=== PATIENT | male | born 1965 | race Caucasian/White ===

== ENCOUNTER 2023-10-01 01:12 | Inpatient (IN) | payer OTHER, SELFPAY ==
[2023-09-30 22:03] VITALS: BP 157/97
[2023-09-30 22:16] VITALS: BMI 30.2
[2023-09-30 22:24] VITALS: BP 153/89
[2023-09-30 22:31] LABS: % Basophils 0.7 % (0-2); % Eosinophils 1.5 % (0-6); % Immature Granulocytes 0.3 % (0-0.5); % Lymphocytes 33.1 % (20.5-51.1); % Neutrophils 54.4 % (42.2-75.2); Absolute Eosinophils 0.1 10^3/uL (0-0.7); Absolute Monocytes 0.6 10^3/uL (0.1-0.6); Absolute Neutrophils 3.2 10^3/uL (1.4-6.5); Hematocrit 39.7 % (39.0-52.0); Hemoglobin 14.1 g/dL (13.0-18.0); Mean Corp Hgb Conc. 35.5 g/dL (33.0-37.0); Mean Corpuscular Hgb 32.1 pg (27.0-31.0); Mean Corpuscular Volume 90.4 fL (80.0-94.0); Mean Platelet Volume 9.1 fL (7.4-10.4); Nucleated Red Blood Cells % 0 % (-); Platelet Count 170 10^3/uL (130-400); Red Blood Cell Count 4.39 10^6/uL (4.70-6.10); White Blood Cell Count 5.9 10^3/uL (4.8-10.8)
[2023-09-30] MEDS: LOW STRENGTH ASPIRIN 324 MG PO (22:37)
[2023-09-30] MEDS: NITROSTAT (SUBLINGUAL) 0.400000000000000022 MG SL (22:37)
[2023-09-30 22:48] LABS: ALT (SGPT) < 10 U/L (0-50); AST (SGOT) 23 U/L (17-59); Albumin 4.6 g/dl (3.5-5.0); Alkaline Phosphatase 75 U/L (38-126); Blood Urea Nitrogen 16 mg/dl (9-20); Calcium 9.5 mg/dl (8.4-10.2); Carbon Dioxide 29 mmol/L (22-30); Chloride 98 mmol/L (98-107); Estimated Creatinine Clearance 84 ml/min; Glucose 132 mg/dl (70-99); Potassium 3.5 mmol/L (3.5-5.1); Sodium 138 mmol/L (135-145); Total Bilirubin 0.6 mg/dl (0.2-1.3); Total Protein 7.4 g/dl (6.3-8.2); eGFR > 60.00
[2023-09-30 22:59] LABS: Troponin I < 0.012 ng/ml
[2023-09-30 23:00] VITALS: BP 119/94
--- NOTE | 2023-09-30 23:42 | ED.GENMED ---
History of Present Illness
General
Chief Complaint: Chest Pain
Source: patient
Exam Limitations: none
Time Seen by Provider: 09/30/23 22:32
Nursing documentation reviewed up to this point in time: agreed with
Travel History
Have you had any contact with someone who has COVID-19?: No
Do you have any symptoms of coronavirus? Fever > 100 degrees, chills, cough, shortness of breath, sore throat, loss of taste or smell, muscle aches, or headache?: No
History of Present Illness
History of Present Illness:
58-year-old male with a past medical history of asthma, hypertension, CAD status post CABG, VT status post AICD, GERD and Martínez's esophagus who presents to the emergency room for evaluation of chest pain. Patient reports onset of symptoms about
30 minutes prior to arrival and have been constant since that time. He reports 8/10 intensity described as an intense pressure in the center of his chest. Associate with mild shortness of breath. No nausea, vomit, diaphoresis. He says onset of
symptoms began while he was driving home from work. He denies any recent illness. He denies any recent leg pain or swelling. He follows with [facility] cardiology (Dr. Granados); he has a known history of CT status post stent 20 years ago and had a CABG
5 years later. He says that he has a known 'blockage' that they have been following and managing medically.
Past History
Past History
ED Past Medical History: CAD, GERD (barretts), HTN, Hypercholesterolemia, CT (2000), Other (cardiomyopathy) and Other (Diverticulitis, volvulus, Kidney stones)
ED Past Surgical History: Cardiac (CABG with 3 vessel bypass, 2008, AICD), Orthopedic and Other (Gastropexy November 2011 for repair of gastric volvulus. Anterior gastropexy and gastrostomy September 2012)
Social History
Tobacco: Non-smoker
Alcohol: None
Drug: None
Personal:
Living: with family
Employment: Employed
Family History
Family History: CAD
Review of Systems
Review of Systems
All Other Systems: ROS reviewed and negative except as documented in HPI and ROS
Constitutional: Denies fever or chills
EENT: Denies sore throat or runny nose
Respiratory: Reports trouble breathing; Denies cough
Cardiac: Reports chest pain; Denies diaphoresis, palpitations or syncope
ABD/GI: Denies abdominal pain, nausea, vomiting or diarrhea
: Denies flank pain
Musculoskeletal: Denies neck pain or back pain
Neurological: Denies dizzy, headache, weakness or numbness
Phy Exam
Physical Exam
Physical Exam:
General: Awake, alert, oriented x3; appears uncomfortable clutching his chest
Head: Normocephalic, atraumatic
Eyes: Conjunctiva normal, sclera anicteric
Throat: Airway intact, handling secretions
Neck: Trachea midline, supple without meningismus
Lungs: Clear to auscultation bilaterally, no wheezing, rales, rhonchi
Heart: Regular rate and rhythm, no murmurs, gallops, or rubs
Abd: Soft, non distended, nontender
Neuro: No gross deficits
Skin: no rash
Extremities: No edema in extremities, equal pulses in all extremities
Scores
Heart Failure Risk
Heart Failure Risk Score: Not Applicable
Heart Score for Chest Pain Patients
STEMI patient?: No
History: Moderately Suspicious
ECG: Nonspecific Repolarization
Age: >45 - <65 years
Risk Factors: >/= 3 Risk Factors or History of CAD
Troponin: </= Normal Limit
Heart Score for Chest Pain Patients: 5
Heart Score Risk: 20.3% MACE over next 6 weeks
Withdrawal Assessment of Alcohol
Withdrawal Assessment Completed?: Not applicable
Course
Orders/Labs/Results
Orders:
Orders
09/30/23 22:02
Electrocardiogram (*1) Urgent
Reason for Study: Chest Pain
Cardiac Monitoring- Treatment ONCE
EKG- Treatment ONCE
IV Insert/Care/Rem.- Treatment PRN
O2 Therapy [RESP] Urgent
Titrate/Wean O2 to maintain O2 sat greater than (%): 90
Special Instructions: Maintain sats >/=90%
Pulse Ox/spot Check [RESP] Urgent
Quantity: 1
Special Instructions: ON ROOM AIR
09/30/23 22:10
CXR2 [CR Chest - 2 Views ] Urgent
Comment:
Reason For Exam: cough chest pain
09/30/23 22:25
Complete Blood Count/With Diff Urgent
Comprehensive Metabolic Panel Urgent
Troponin I Urgent
09/30/23 22:35
Aspirin Chewable [Low Strength Aspirin] 324 mg PO NOW STA
Nitroglycerin Sublingual [Nitrostat (Sublingual)] 0.4 mg SL NOW STA
09/30/23 22:36
Aspirin Chewable [Low Strength Aspirin] 324 mg .ROUTE .STK-MED ONE
Nitroglycerin Sublingual [Nitrostat (Sublingual)] 0.4 mg .ROUTE .STK-MED ONE
09/30/23 23:39
PTT Urgent
Comment: Obtain baseline before beginning heparin infusion if not already collected
Heparin 4,000 units IV NOW STA
Nitroglycerin 100 mg/250 ml [Nitroglycerin Premix] 100 mg in 250 ml IV NOW
Currently infusing. Continue current dose and titrate:: Yes
Titrate to keep:: Chest Pain Free
Titrate by mcg/min:: 5 mcg/min, may increase by 10 mcg/min if dose > 20 mcg/min
Frequency of titrations (minutes):: every 3-5 minutes
Maximum dose in mcg/min:: 200
Begin to taper infusion when:: Remained at goal for 2hrs
Taper by mcg/min:: 5 mcg/min
Frequency of taper (minutes) if patient maintains goal:: 30
Taper to off?: Yes
If infusion off & no longer maintaining goal:: Contact Provider
Pharmacy Request to Place See Dose Instructions PO NOW STA
Discontinue all Active Warfarin orders?: Yes
Nursing to Place Non Medication Order As Directed
Physician Order: PTT 6 hours after initial start of Heparin infusion
09/30/23 23:41
CARDIOLOGY CONSULT Urgent
Consulting Provider: Memo Granados
Was physician already notified: Yes
09/30/23 23:45
Heparin 31109 Units/250 ml 25,000 units in 250 ml IV PER PROTOCOL
Weight to be used for heparin protocol in kilograms (kg):: 84.9
Protocol:: Cardiac Tx/Acute Coronary
PTT Goal Range to be used:: PTT 73 to 111 seconds
Order type:: Initial
INITIAL Infusion Dose (UNITS/KG/hr) & then follow protocol:: 12 units/kg/hr
Infusion Dose in UNITS/hr & then follow protocol (UNITS/hr):: 1,000
INFUSION RATE in mL/hr & then follow protocol (mL/hr):: 10
PTT less than or equal to 64 seconds:: Increase rate by 200 units/hr (+ 2 mL/hr)
PTT 64.1 to 72.9 seconds:: Increase rate by 100 units/hr (+ 1 mL/hr)
PTT 73 to 111 seconds:: Target Range. No change in rate.
PTT 111.1 to 130.9 seconds:: Decrease rate by 100 units/hr (- 1 mL/hr)
PTT 131 to 199.9 seconds:: HOLD for 1 hr. Then decrease rate by 200 units/hr (- 2 mL/hr)
PTT greater than or equal to 200 seconds:: HOLD for 2 hrs & Notify Provider. Then decrease by 200 units/hr (-
2 mL/hr)
Lab follow-up:: Each change, PTT q6h until 2 consecutive are therapeutic. Then PTT
daily.
Pharmacy Request to Place See Dose Instructions IV DIRECTED
10/01/23 01:00
Troponin I Urgent
Abnormal Lab Results
09/30/23
22:25
RBC 4.39 L 10^6/uL
(4.70-6.10)
MCH 32.1 H pg
(27.0-31.0)
Monocytes % 10.0 H %
(1.7-9.3)
Glucose 132 H mg/dl
(70-99)
09/30/23 22:25
09/30/23 22:25
Vital Signs
Initial and Last Documented VS:
Initial Vital Signs
Temp Pulse Resp BP Pulse Ox
36.8 C 70 18 157/97 100
09/30/23 22:03 09/30/23 22:03 09/30/23 22:03 09/30/23 22:03 09/30/23 22:03
Last Documented Vital Signs
Temp Pulse Resp BP Pulse Ox
36.8 C 74 13 119/94 97
09/30/23 22:03 09/30/23 23:00 09/30/23 23:00 09/30/23 23:00 09/30/23 23:00
MDM/Problems Addressed
Differential Diagnosis Includes:
ACS/unstable angina, GERD/esophageal spasm, pneumothorax, aortic dissection somewhat less likely, PE considered less likely
MDM/Problems Addressed:
58-year-old male presents for evaluation of sudden onset substernal chest pressure 30 minutes prior to arrival. He arrives hypertensive but with otherwise normal vitals. EKG shows no STEMI�appears similar to prior. Physical exam as above. Given
aspirin and nitroglycerin with some improvement in his chest pain�will continue to dose with nitroglycerin as needed to relieve chest pain. Will send labs including a CBC and a CMP, trend troponins. Will check a chest x-ray. Case discussed with
cardiology�recommended nitro infusion if needed to maintain chest pain-free, heparin infusion, agrees with trending troponin. Apparently has complex coronary anatomy not amenable to stenting and so they will manage this medically. Will plan for
admission to the hospitalist pending initial workup.
Labs reviewed: CBC unremarkable, CMP no clinically significant abnormalities. Troponin negative x 1 but drawn less than an hour after onset of chest pain�will need to continue to trend. Chest x-ray reviewed by me shows no acute disease. Patient
appears well on clinical reassessment says his chest pain has improved now on nitroglycerin infusion. Will admit to the hospitalist Case discussed with hospitalist for admission.
Chronic conditions affecting care:
CAD
Acute Exacerbation and/or Progression of Chronic Illness:
Acutely hypertensive managed with nitroglycerin
Acute Exacerbation and/or Progression of Chronic Illness: HTN
*Radiology
Radiology exam reviewed: preliminary read by ED provider
*Pulse Oximetry
Patient hypoxic: no
*EKG
Interpreted by ED Provider?: Yes
Comparison EKG: no changes
Heart Rate: 73
Rate: normal
Rhythm: sinus
Tucker: normal axis
Interval: normal interval
QRS Pattern: right bundle branch block
Ischemia: non-specific ST changes
*Critical Care Note
Total Time (30-74mins, 75-104mins- exclusive of procedures): Not Applicable
Data Reviewed
Review of Other/Old Records Reveals: Labs and Records
Source: patient and records
Patient Management
Discussion with other providers: Hospitalist (Discussed with hospitalist) and Silk Screen Operator (Discussed with cardiology)
Escalation/DeEscalation of care consider admission/obs:
Admission indicated
ED Attending Note
-
Portions of this chart may have been created with voice recognition software.� Occasional wrong word or��sound alike� substitutions may have occurred due to the inherent limitations of voice recognition software.
Discharge Plan
Departure
Patient Disposition: Admit
Date of Disposition: 09/30/23
Time of Disposition: 23:41
Admit to doctor: Mraiia
Presentation/result/management discussed w/ accepting MD/DO: Hospitalist
Discharge Problem:
Unstable angina
Prescriptions:
No Action
aspirin [Adult Aspirin Regimen] 81 MG tablet,delayed release (DR/EC)
81 mg PO DAILY
metoprolol succinate [Toprol XL] 50 MG tablet extended release 24 hr
50 mg PO DAILY
pantoprazole 40 MG tablet,delayed release (DR/EC)
40 mg PO DAILY
rosuvastatin 20 MG tablet
20 mg PO QPM
ranolazine 1,000 MG tablet extended release 12 hr
1,000 mg PO BID
clopidogrel [Plavix] 75 mg Tablet
75 mg PO DAILY
nitroglycerin 0.4 mg tablet, sublingual
0.4 mg sublingual [id number] PRN (Reason: chest pain)
isosorbide dinitrate 5 mg Tablet
5 mg PO BID
Referrals:
Edilberto Crowe MD [Family Provider] -
Interventions
Interventions:
*Risk Screen - Suicide Last Done: 09/30/23 22:17
*General Assessment Last Done: 09/30/23 22:17
*Neglect/Abuse Screening Last Done: 09/30/23 22:03
ED- Fall Risk Assessment Last Done: 09/30/23 22:17
*ED COVID-19 Vaccine History Last Done: 09/30/23 22:17
ED- Cardiac Assessment Last Done: 09/30/23 22:17
Discharge Date and Time
Print Language: GAMBIAN
--- NOTE | 2023-09-30 23:59 | HPS.HSE ---
Family Physician
-
Family Physician: Edilberto Crowe
Chief Complaint
-
Chest pressure
History of Present Illness
HPI
58M HX CAD, CABG in 2004 , ICM with EF 50%, Chronic Rt BBB, HX VT/ ICM s/p [employer] implantable cardioverter-defibrillator.
HTN , HLD seen at ER for evaluation of CP.
Acute CP
- described as chest pressure with radiation to mid back while driving from work to home
- Denied SoB, nausea and vomiting
- still have 2/10 Chest pressure at ER - was 12/02
- No associated complaints
Medical History
Past Medical History
Past Medical History: Reports Other
Additional Past Medical History:
chest discomfort
ICM with EF 50%
Dyslipidemia
HTN
Chronic Rt BBB
HX VT/ ICM s/p [employer] implantable cardioverter-defibrillator.
CAD on aspirin, Plavix, statin, beta mitzi, and Imdur.
Past Surgical History: Reports Cardiac (CABG in 2004 at )
Social History
Tobacco: Non-smoker
Alcohol: None
Drug: None
Personal:
Living: With Family
Family History
Family History: Not pertinent
Allergies / Home Medications
Allergies reflects when Allergies were last updated in [facility].
Home Medications with original date entered in [facility]
Allergy/Medication List:
Allergies
Allergy/AdvReac Type Severity Reaction Status Date / Time
lactose Allergy Nausea / Verified 09/30/23 22:02
Vomiting
pollen extracts Allergy seasonal Verified 09/30/23 22:02
allergies
tree nut [Tree Nut] Allergy Nausea Verified 09/30/23 22:02
Home Medications
aspirin 81 mg tablet,delayed release (Adult Aspirin Regimen) 81 mg PO DAILY 07/03/18
metoprolol succinate 50 mg tablet,extended release 24 hr (Toprol XL) 50 mg PO DAILY 06/21/19
pantoprazole 40 mg tablet,delayed release 40 mg PO DAILY 06/21/19
rosuvastatin 20 mg tablet 20 mg PO QPM 06/21/19
ranolazine 1,000 mg tablet,extended release,12 hr 1,000 mg PO BID 08/20/20
clopidogrel 75 mg tablet (Plavix) 75 mg PO DAILY 11/26/21
nitroglycerin 0.4 mg sublingual tablet 0.4 mg sublingual [id number] PRN chest pain 02/09/22
isosorbide dinitrate 5 mg tablet 5 mg PO BID 02/10/22
Review of Systems
-
Constitutional: Reports No Symptoms
EENT: Reports No Symptoms
Respiratory: Reports No Symptoms
Cardiac: Reports See HPI
Abdomen/GI: Reports No Symptoms
: Reports No Symptoms
Musculoskeletal: Reports No Symptoms
Skin: Reports No Symptoms
Neurological: Reports No Symptoms
Endocrine: Reports No Symptoms
Hematologic/Lymphatic: Reports No Symptoms
Psych: Reports No Symptoms
Physical Exam
Vital Signs
Vital Signs
Temp Pulse Resp BP Pulse Ox
98.2 F 74 13 119/94 97
09/30/23 22:03 09/30/23 23:00 09/30/23 23:00 09/30/23 23:00 09/30/23 23:00
Physical Exam
General: No Apparent Distress, Comfortable and Conversant
HEENT: NormoCephalic, Anicteric and Moist mucous membranes
Respiratory: Clear; No Wheezes, Rales or Rhonchi
Cardiac: S1/S2, Regular Rhythm and Murmur (soft systolic mumur at LUSB ); No Tachycardia
Breast: Deferred by me
GI: Soft, Non Tender, Non Distended and Normal Bowel Sounds
Rectal: Deferred by Provider
Genito-urinary: Deferred by me
Musculoskeletal: No Edema
Skin: Warm and Dry
Neuro: AO x 3 and Nonfocal/grossly intact
Psych: Calm and Intact Judgment/Insight
Laboratory Results
-
09/30/23 22:25
09/30/23 22:25
Laboratory Results
Total Bilirubin 0.6 mg/dl (0.2-1.3) 09/30/23 22:25
AST 23 U/L (17-59) 09/30/23 22:25
ALT < 10 U/L (0-50) 09/30/23 22:25
Alkaline Phosphatase 75 U/L (38-126) 09/30/23 22:25
Troponin I < 0.012 ng/ml 09/30/23 22:25
Data Reviewed
-
Diagnostic Radiology: Discussed with Physician
Medical Tests (Nuc Med, Echo, EKG etc): Report Reviewed by me
Lab Data: Discussed with Physician
Old Records: Reviewed
Impression/Plan
-
Reviewed VS: HR 83-->74 BP 153/89 --> 119/94 POx 97 on RA
Data
Unremarkable CBC
Unremarkable CMP
NEG first TPNI at 2225H
EKG
NORMAL SINUS RHYTHM
RIGHT BUNDLE BRANCH BLOCK , PLUS RIGHT VENTRICULAR HYPERTROPHY
POSSIBLE ANTEROSEPTAL INFARCT (CITED ON OR BEFORE 26-APR-2000)
ABNORMAL ECG
WHEN COMPARED WITH ECG OF 09-FEB-2022 11:52,
QUESTIONABLE CHANGE IN INITIAL FORCES OF SEPTAL LEADS
02/09/22 ECHO
LV ejection fraction is approximately 50%.
Moderate to severe mid anteroseptal, inferoseptal, apical septal, and apical inferior hypokinesis.
Normal right ventricular size and function. ICD wire seen in right ventricle.
Mitral valve opens normally. Mild mitral regurgitation.
Aortic valve opens normally. Trace aortic regurgitation.
Trace tricuspid regurgitation. Estimated pulmonary artery pressure of 20-25 mmHg.
No significant change since the prior study of 01/31/20.
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
PDx;
chest discomfort
ICM with EF 50%
Dyslipidemia
HTN
Chronic Rt BBB
HX VT/ ICM s/p [employer] implantable cardioverter-defibrillator.
CAD on aspirin, Plavix, statin, beta mitzi, and Imdur.
ASSESSMENT & PLAN
Pending Rx reconciliation
ACS unless proven otherwise
still have 2/10 Chest pressure - was 12/02
Remote HX triple CABG in 2004 at
- Denied SoB, nausea and vomiting
- still have 2/10 Chest pressure at ER - was 12/02
- NEG first TPNI
- Not yet CP free
- Loading ASA followed by WELDING ESTIMATOR ASA and cont. Plavix
- cont. NTG gtt
- cont. Heparin gtt
- To trend TPNI and EKG
- To consider Ischemic evaluation - will keep NPO for now
- [facility] card consulted
ICM with recovered EF
- cont. metoprolol succinate
HLD
- cont Crestor 20mg
Essentila HTN
- cont medical therapy
RBBB - chronic, stable
VT/ICM S/P [employer] ICD - stable
-Implantation 08/10/2012, generator change 07/03/2018
HX GERD
Intestine and esophageal dysmotility HX ??
- on WELDING ESTIMATOR PO PPI - cont.
DVT Px: on Heparin gtt
Code: Full
IVU
[2023-10-01] VITALS (20 sets, daily range): BP systolic 100–133; BP diastolic 63–85; PULSE 60–64; BMI 29.2
[2023-10-01] MEDS: NITROGLYCERIN PREMIX 250 IV (00:28)
[2023-10-01 00:43] LABS: APTT 30.5 Sec (23.4-35.0)
[2023-10-01] MEDS: HEPARIN 25000 UNITS/250 ML IV ×2 (00:43→22:42)
[2023-10-01] MEDS: HEPARIN 4000 UNITS IV (00:45)
[2023-10-01 00:57] LABS: Troponin I < 0.012 ng/ml
--- NOTE | 2023-10-01 01:37 | W.PN.UPDATE ---
Update Note
Progress Note Update
RN requesting IMU bed, patient is on Nitroglycerin drip and patient is feeling better at 5mcg/min. Dr. Chiang made aware. will order Nitroglycerin drip non titratable and transfer to IMU.
--- NOTE | 2023-10-01 03:51 | PTCARENOTE ---
Received pt from ED via stretcher. Pt able to ambulate into room with minimal assistance. No c/o of dizziness or CP. NTG running at 5 mg/hr per order (non titratable gtt) and Heparin gtt at 1000 units/hr. Labs drawn and sent. EKG obtained per
order with each troponin level. Pt resting in bed with call marti in reach.
[2023-10-01 03:56] LABS: Hemoglobin 13.8 g/dL (13.0-18.0); Mean Corp Hgb Conc. 35.4 g/dL (33.0-37.0); Mean Corpuscular Hgb 32.7 pg (27.0-31.0); Mean Corpuscular Volume 92.4 fL (80.0-94.0); Mean Platelet Volume 9.3 fL (7.4-10.4); Platelet Count 161 10^3/uL (130-400); Red Blood Cell Count 4.22 10^6/uL (4.70-6.10); Red Cell Dist. Width 12.2 % (11.5-14.5); White Blood Cell Count 6.3 10^3/uL (4.8-10.8)
[2023-10-01 04:24] LABS: Troponin I < 0.012 ng/ml
[2023-10-01 04:33] LABS: ALT (SGPT) < 10 U/L (0-50); AST (SGOT) 27 U/L (17-59); Albumin 4.3 g/dl (3.5-5.0); Alkaline Phosphatase 69 U/L (38-126); Blood Urea Nitrogen 17 mg/dl (9-20); Calcium 9.6 mg/dl (8.4-10.2); Carbon Dioxide 30 mmol/L (22-30); Chloride 103 mmol/L (98-107); Estimated Creatinine Clearance 74 ml/min; Glucose 126 mg/dl (70-99); HDL Cholesterol 54 mg/dl; LDL Cholesterol, Calculated 65 mg/dl; Potassium 4.6 mmol/L (3.5-5.1); Sodium 141 mmol/L (135-145); Total Bilirubin 0.7 mg/dl (0.2-1.3); Total Cholesterol 133 mg/dl (50-199); Triglyceride 73 mg/dl (10-149); Very Low Density Lipoprotein 14 mg/dl (0-30); eGFR > 60.00
[2023-10-01 06:48] LABS: APTT 83.6 Sec (23.4-35.0)
--- NOTE | 2023-10-01 08:25 | W.PN.HOSP.TC ---
Today's Communication/Plan
-
see bold
Assessment / Plan
Assessment / Plan
#Chest pain
#History of CAD
EKG and cardiac enzymes are unremarkable.
S/p nitro drip
Appreciate cards input, plan for stress test tuesday
Continue heparin drip, aspirin, plavix, statin, BB
#ICM (EF 50%) s/p ICD
Stable, monitor
#HTN:
BP controlled on BB
#HLD
Continue statin; transitioning to Repatha as an outpatient
#GERD
Continue PPI
DVT prophylaxis�IV heparin drip
Full code
Total time spent to see the patient on the floor, examine the patient, review data and lab results, discuss treatment plan with patient, nursing staff around 35 minutes.
Physical Exam
General: No acute distress
HEENT: Normocephalic, Atraumatic, EOMI, MMM
Respiratory: Clear to Auscultation bilaterally
Cardiac: Normal S1/S2, Regular Rate and Rhythm
GI: Soft, Nontender, Nondistended, Normal Bowel Sounds
Extremities: No Clubbing, Cyanosis, or Edema
Neuro: Nonfocal/Grossly Intact
Psych: Calm, Cooperative
Derm: No Visible lesions
Anticipated Discharge: > 48 hours
Subjective/Interval History
-
Date of Service: October 01, 2023
Chest pain resolved. No fever, no vomiting.
Objective Data
-
Labs:
Laboratory Results
09/30/23 10/01/23 10/01/23
22:25 00:23 03:44
WBC 5.9 6.3
Hgb 14.1 13.8
Hct 39.7 39.0
Plt Count 170 161
APTT 30.5
Sodium 138 141
Potassium 3.5 4.6 D
Chloride 98 103
Carbon Dioxide 29 30
BUN 16 17
Creatinine 1.0 1.0
Glucose 132 H 126 H
Calcium 9.5 9.6
Total Bilirubin 0.6 0.7
AST 23 27
ALT < 10 < 10
Alkaline Phosphatase 75 69
10/01/23 10/01/23 10/01/23
06:28 07:45 12:30
WBC
Hgb
Hct
Plt Count
APTT 83.6 H Cancelled Pending
Sodium
Potassium
Chloride
Carbon Dioxide
BUN
Creatinine
Glucose
Calcium
Total Bilirubin
AST
ALT
Alkaline Phosphatase
Vital Signs:
Vital Signs
Temp Pulse Resp BP Pulse Ox
98.4 F 62 21 106/83 93
10/01/23 07:20 10/01/23 06:00 10/01/23 03:45 10/01/23 06:00 10/01/23 06:00
[2023-10-01] MEDS: PLAVIX 75 MG PO (08:45)
[2023-10-01] MEDS: ASPIR LOW (ENTERIC COATED) 81 MG PO (08:45)
[2023-10-01] MEDS: TOPROL XL 50 MG PO (08:46)
[2023-10-01] MEDS: PROTONIX 40 MG PO (08:46)
[2023-10-01 09:41] LABS: Glycohemoglobin (HgbA1c) 5.9 % (4.0-5.6)
--- NOTE | 2023-10-01 10:21 | CON.CAR ---
Consultation
Consultation Request
Date/Time Consultation Requested: 10/01/23
Date/Time Consultation Performed: 10/01/23
Requesting Provider: Dr. Chiang
Performing Provider: Dr. Granados
Reason for Consultation: Chest Pain
Medical History
-
Chief Complaint: Chest Pain
History of Present Illness:
57-year-old male (Bsw) with premature coronary artery disease status-post proximal LAD stent (2000; at age 33) and subsequent CABG (x 3 in 2007; functionally occluded radial artery graft to the circumflex marginal) with chronic stable angina
and residual sternal/musculoskeletal chest pain, chronic ischemic cardiomyopathy/HFmrEF (initial LVEF~35%; most recent LVEF 50%) status-post [employer] single chamber ICD implantation (08/10/12; generator change 07/03/18), hypertension,
hyperlipidemia, chronic RBBB, obesity, and obstructive sleep apnea presenting�with chest pain yesterday after he got home from work. The chest pain is described as a pressure as if someone was standing on the middle of his chest. It is
non-exertional, and he has not been having symptoms with exercise or at work; the chest pain lasted for 1.5 hours and improved with NTG. He denies shortness of breath, palpitations, syncopal events or lower extremity swelling.
Past Medical History
Past Medical History: CAD, CHF, HTN, Hypercholesterolemia and AK
Past Surgical History: Cardiac (CABG)
Social History
Tobacco: Non-Smoker
Alcohol: None
Drug: None
Personal:
Living: With Family
Employment: Employed
Family History
Family History: CAD
Allergies / Home Medications
Allergy/AdvReac Type Severity Reaction Status Date / Time
lactose Allergy Nausea / Verified 09/30/23 22:02
Vomiting
pollen extracts Allergy seasonal Verified 09/30/23 22:02
allergies
tree nut [Tree Nut] Allergy Nausea Verified 09/30/23 22:02
�Medication �Instructions �Recorded �Confirmed �Type
aspirin 81 mg tablet,delayed 81 mg PO DAILY 07/03/18 02/09/22 History
release (Adult Aspirin Regimen)
metoprolol succinate 50 mg 50 mg PO DAILY 06/21/19 02/09/22 History
tablet,extended release 24 hr
(Toprol XL)
pantoprazole 40 mg tablet,delayed 40 mg PO DAILY 06/21/19 02/09/22 History
release
rosuvastatin 20 mg tablet 20 mg PO QPM 06/21/19 02/09/22 History
ranolazine 1,000 mg 1,000 mg PO BID 08/20/20 02/09/22 History
tablet,extended release,12 hr
clopidogrel 75 mg tablet (Plavix) 75 mg PO DAILY 11/26/21 02/09/22 History
nitroglycerin 0.4 mg sublingual 0.4 mg sublingual [id number] PRN 02/09/22 02/09/22 History
tablet chest pain
isosorbide dinitrate 5 mg tablet 5 mg PO BID 02/10/22 02/10/22 History
Review of Systems
-
History Source: Patient
All other systems: Negative unless noted
Physical Exam
Vital Signs
Temp Pulse Resp BP Pulse Ox
98.4 F 62 21 106/83 93
10/01/23 07:20 10/01/23 06:00 10/01/23 03:45 10/01/23 06:00 10/01/23 06:00
Lab Results
10/01/23 03:44
10/01/23 03:44
Troponin I Cancelled 10/01/23 09:23
Physical Exam
General: No Apparent Distress and Comfortable
HEENT: Normocephalic and Anicteric
Respiratory: Clear
Cardiac: S1/S2 and Regular Rhythm
Breast: N/A
GI: Soft
Rectal: Deferred by Provider
Musculoskeletal: No Clubbing, No Cyanosis and No Edema
Skin: Warm and Dry
Neuro: AO x 3
Psych: Calm
Impression / Plan
-
57-year-old male (Bsw) with premature coronary artery disease status-post proximal LAD stent (2000; at age 33) and subsequent CABG (x 3 in 2007; functionally occluded radial artery graft to the circumflex marginal) with chronic stable angina
and residual sternal/musculoskeletal chest pain, chronic ischemic cardiomyopathy/HFmrEF (initial LVEF~35%; most recent LVEF 50%) status-post [employer] single chamber ICD implantation (08/10/12; generator change 07/03/18), hypertension,
hyperlipidemia, chronic RBBB, obesity, and obstructive sleep apnea presenting�with chest pain yesterday after he got home from work. The chest pain is described as a pressure as if someone was standing on the middle of his chest. It is
non-exertional, and he has not been having symptoms with exercise or at work; the chest pain lasted for 1.5 hours and improved with NTG. He denies shortness of breath, palpitations, syncopal events or lower extremity swelling.
Chest pain--known CAD as outlined above:
-Etiology unclear; some typical and atypical features.
-EKG and cardiac enzymes are unremarkable.
-Wean off NTG drip.
-Will try to maintain conservative management given complex coronary anatomy--would be at relatively high risk for coronary intervention.
-Continue heparin drip throughout the weekend; continue to monitor symptoms.
-Will obtain a stress test on Tuesday; NPO after MN tuesday night.
-cardiac monitor
ICM (EF 50%) s/p ICD:
-Stable; compensated.
-Cotntinue current medications.
HTN:
-Controlled on current medications.
HLD:
-Continue statin; transitioning to Repatha as an outpatient.
Data Reviewed
-
EKG: Tracing Personally Visualized and interpreted (, RBRICHARD)
Labs: Labs Reviewed by me
[2023-10-01 13:20] LABS: APTT 68.3 Sec (23.4-35.0)
--- NOTE | 2023-10-01 14:30 | PTCARENOTE ---
patient again reporting 3/10 midsternal pressure, radiating around left ribs to mid back. He is resting in bed in no apparent distress. He is not diaphoretic. Denies nausea or dyspnea. pox 96% on room air. b/p 128/80, MAP 96, sinus rhythm on tele
with rates in 60's. O2 placed at 2L nasal canula. EKG done. Dr. Granados notified. Orders to resume nitroglycerine drip at 5mcg/min. Pt is reporting that the pressure has somewhat decreased after 5-10 mins. Continuing to monitor
--- NOTE | 2023-10-01 16:25 | CHAP ---
Sixto was in good spirits. His mother and step-father were visiting - family is very attentive. Emotional and spiritual support provided, along with a prayer blanket.
[2023-10-01] MEDS: CRESTOR 20 MG PO (18:14)
[2023-10-01 20:23] LABS: APTT 69.2 Sec (23.4-35.0)
--- NOTE | 2023-10-01 21:48 | PTCARENOTE ---
Pt received in bathroom. Ambulated w/ min assist. AAOx3. BBB on the monitor. No complaints of CP. Nitro infusing. Lungs clear. Occ Dry NPC. Heparin gtt infusing - adjusted per order.
[2023-10-02] VITALS (26 sets, daily range): BP systolic 104–127; BP diastolic 72–91; PULSE 64–67; BMI 29.0; BMI 28.9
[2023-10-02 03:02] LABS: APTT 85.3 Sec (23.4-35.0)
--- NOTE | 2023-10-02 07:19 | PTCARENOTE ---
Pt remains CP free on Nitro gtt
[2023-10-02] MEDS: TOPROL XL 50 MG PO (08:10)
[2023-10-02] MEDS: PLAVIX 75 MG PO (08:10)
[2023-10-02] MEDS: ASPIR LOW (ENTERIC COATED) 81 MG PO (08:10)
[2023-10-02] MEDS: PROTONIX 40 MG PO (08:10)
--- NOTE | 2023-10-02 08:31 | W.PN.HOSP.TC ---
Today's Communication/Plan
-
For cardiac catheterization tomorrow
Assessment / Plan
Assessment / Plan
#Chest pain concerning for unstable angina
#History of CAD
EKG and cardiac enzymes are unremarkable.
S/p nitro drip
Appreciate cards input, plan for cardiac catheterization Tuesday
Continue heparin drip, aspirin, plavix, statin, BB
#ICM (EF 50%) s/p ICD
Stable, monitor
#HTN:
BP controlled on BB
#HLD
Continue statin; transitioning to Repatha as an outpatient
#Glucose Intolerance/Prediabetes
HgA1C 5.9 -patient informed
Recommend whole wheat bread, pastas, limiting sugar intake
#GERD
Continue PPI
DVT prophylaxis�IV heparin drip
Full code
Total time spent to see the patient on the floor, examine the patient, review data and lab results, discuss treatment plan with patient, nursing staff around 35 minutes.
Physical Exam
General: No acute distress
HEENT: Normocephalic, Atraumatic, EOMI, MMM
Respiratory: Clear to Auscultation bilaterally
Cardiac: Normal S1/S2, Regular Rate and Rhythm
GI: Soft, Nontender, Nondistended, Normal Bowel Sounds
Extremities: No Clubbing, Cyanosis, or Edema
Neuro: Nonfocal/Grossly Intact
Psych: Calm, Cooperative
Derm: No Visible lesions
Anticipated Discharge: 24 - 48 hours
Subjective/Interval History
-
Date of Service: October 01, 2023
Patient had recurrence of chest pain after stopping the nitroglycerin drip yesterday. The nitroglycerin drip was resumed, his chest pain resolved. No fever, no vomiting.
Objective Data
-
Labs:
Laboratory Results
10/01/23 10/01/23 10/01/23
03:44 06:28 12:53
WBC 6.3
Hgb 13.8
Hct 39.0
Plt Count 161
APTT 83.6 H 68.3 H
Sodium 141
Potassium 4.6 D
Chloride 103
Carbon Dioxide 30
BUN 17
Creatinine 1.0
Glucose 126 H
Calcium 9.6
Total Bilirubin 0.7
AST 27
ALT < 10
Alkaline Phosphatase 69
10/01/23
19:26
WBC
Hgb
Hct
Plt Count
APTT Pending
Sodium
Potassium
Chloride
Carbon Dioxide
BUN
Creatinine
Glucose
Calcium
Total Bilirubin
AST
ALT
Alkaline Phosphatase
Vital Signs:
Vital Signs
Temp Pulse Resp BP Pulse Ox
98.3 F 62 17 112/77 95
10/01/23 15:56 10/01/23 14:00 10/01/23 14:00 10/01/23 12:00 10/01/23 14:00
[2023-10-02 09:36] LABS: APTT 80.9 Sec (23.4-35.0)
--- NOTE | 2023-10-02 10:06 | PTCARENOTE ---
Assumed care of pt at 0645. AAOx3. NSR on pvc monitor. HR 70s. SaO2 96% on RA. Heparin gtt infusing 1200 units/hr. Pt with two consecutive therapeutic PTTs, ordered PTT for tomorrow morning. Nitro gtt continues at 5mcg/min. Pt denies any pain at
this time. Assessment documented. Pt OOB in chair, call marti within reach.
--- NOTE | 2023-10-02 11:35 | W.PN.CD ---
Today's Communication / Plan
-
-Symptoms are highly concerning for unstable angina, as the patient's symptoms recurred after nitroglycerin was held; nitroglycerin has subsequently been restarted.
-Will undergo cardiac catheterization tomorrow to reevaluate complex coronary anatomy--would be at relatively high risk for coronary intervention.
-Continue heparin drip and nitroglycerin drip.
-Continue aspirin/Plavix.
Impression / Plan
-
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
and residual sternal/musculoskeletal chest pain, chronic ischemic cardiomyopathy/HFmrEF (initial LVEF~35%; most recent LVEF 50%) status-post [employer] single chamber ICD implantation (08/10/12; generator change 07/03/18), hypertension,
hyperlipidemia, chronic RBBB, obesity, and obstructive sleep apnea presenting�with chest pain yesterday after he got home from work. The chest pain is described as a pressure as if someone was standing on the middle of his chest. It is
non-exertional, and he has not been having symptoms with exercise or at work; the chest pain lasted for 1.5 hours and improved with NTG. He denies shortness of breath, palpitations, syncopal events or lower extremity swelling.
Chest pain--known CAD as outlined above:
-Symptoms are highly concerning for unstable angina, as the patient's symptoms recurred after nitroglycerin was held; nitroglycerin has subsequently been restarted.
-EKG and cardiac enzymes remain unremarkable.
-Will undergo cardiac catheterization tomorrow to reevaluate complex coronary anatomy--would be at relatively high risk for coronary intervention.
-Continue heparin drip and nitroglycerin drip.
-Continue aspirin/Plavix.
-Continue Toprol-XL.
-NPO after MN tuesday night.
-Continue patient monitor
ICM (EF 50%) s/p ICD:
-Remains stable; compensated.
-Cotntinue current medication regimen.
HTN:
-Controlled on current medication regimen.
HLD:
-Continue statin; transitioning to Repatha as an outpatient.
Physical Exam
Vital Signs/Labs
Vital Signs
Temp Pulse Resp BP Pulse Ox
98.3 F 69 22 110/86 96
10/02/23 07:00 10/02/23 08:10 10/02/23 07:12 10/02/23 08:10 10/02/23 08:31
10/01/23 10/02/23 10/03/23
06:59 06:59 06:59
Actual Weight 81.9 kg 81.6 kg
10/01/23 03:44
10/01/23 03:44
APTT 80.9 Sec (23.4-35.0) H 10/02/23 09:18
Triglycerides 73 mg/dl (10-149) 10/01/23 03:44
LDL Cholesterol, Calc 65 mg/dl 10/01/23 03:44
VLDL Cholesterol, Calc 14 mg/dl (0-30) 10/01/23 03:44
HDL Cholesterol 54 mg/dl 10/01/23 03:44
LAB Results
09/30/23 10/01/23 10/01/23
22:25 00:23 03:44
Troponin I < 0.012 < 0.012 < 0.012
10/01/23 10/01/23
06:23 09:23
Troponin I Cancelled Cancelled
Physical Exam
Constitutional: No acute distress and Comfortable
EENT: Anicteric
Cardiovascular: Rhythm & rate is regular, Pedal edema is absent, Systolic murmur absent and S1S2 is normal
Respiratory: Respiratory effort normal and Lungs clear to auscul.
GI: Soft
Neuro/Psych: AO x 3
Other: Skin (Warm, dry, intact)
Data Reviewed
-
Date of Service: October 02, 2023
EKG: Tracing Personally Visualized and interpreted (desk monitor: Sinus rhythm)
Medical Tests (PFT, Pathology etc): Discussed with Physician (Primary Hospitalist, Interventional Cardiology) and Discussed with Patient
Labs: Labs Reviewed by me
[2023-10-02] MEDS: CRESTOR 20 MG PO (18:19)
[2023-10-02] MEDS: HEPARIN 25000 UNITS/250 ML IV (19:05)
--- NOTE | 2023-10-02 21:15 | PTCARENOTE ---
Transfer in to IVU. No assessment changes. Nitro gtt & hep gtt running. No CP at this time. VSS. Cath tomorrow. Report given. No other issues.
--- NOTE | 2023-10-02 22:10 | PTCARENOTE ---
Patient transferred to IVU. Walked into room. Heparin and Niro infusing, NSR BBB, denies chest pain. Plan of care reviewed. Call marti in reach
[2023-10-02] MEDS: TYLENOL 650 MG PO (22:14)
[2023-10-03] VITALS (11 sets, daily range): BP systolic 108–133; BP diastolic 72–89; BMI 28.8
[2023-10-03] MEDS: TYLENOL 650 MG PO ×2 (04:27→07:48)
[2023-10-03] MEDS: PLAVIX 75 MG PO (07:48)
[2023-10-03] MEDS: ASPIR LOW (ENTERIC COATED) 81 MG PO (07:48)
[2023-10-03] MEDS: PROTONIX 40 MG PO (07:48)
[2023-10-03] MEDS: TOPROL XL 50 MG PO (07:48)
--- NOTE | 2023-10-03 07:54 | W.PN.CD ---
Addendum entered and electronically signed by Miah Gomez DO 10/03/23 09:27:
Cardiac catheterization performed today shows mild progression of all coronary artery disease without discrete lesion. On direct comparison to prior from 11/11/2018, there has been progression of the distal RCA disease, though the distal vessel is
bypassed with a patent SIMON graft. The VALDES graft supplies a moderately diseased distal LAD. The previously described discrete lesion immediately after the anastomosis is no longer observed.
The patient reports that the chest pain he he has been experiencing is different from prior cardiac chest pain and he does have a history of GERD raising the possibility of esophageal spasm. Furthermore, he demonstrated significant diastolic
dysfunction on catheterization with an LVEDP of 10 mmHg (normal) but an A wave of 24 mmHg.
Continue all current antianginal therapy as well as antiplatelet therapy. Increase pantoprazole to 40 mg p.o. twice daily. Start dapagliflozin 10 mg daily. Stable for outpatient follow-up.
Original Note:
Today's Communication / Plan
-
Cardiac catheterization today.
Impression / Plan
-
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
radial artery graft to the circumflex marginal) with chronic stable angina and residual sternal/musculoskeletal chest pain, chronic ischemic cardiomyopathy/HFmrEF (initial LVEF~35%; most recent LVEF 50%) status-post [employer] single chamber
ICD implantation (08/10/12; generator change 07/03/18) admitted with suspicious chest pain.
#CAD/Suspicious chest pain
-Chronic.
-Prior CABG x3 (VALDES to LAD, SIMON to RPDA, functionally occluded LRA to LCx).
-Symptoms are highly concerning for unstable angina, as the patient's symptoms recurred after nitroglycerin was held; nitroglycerin has subsequently been restarted.
-EKG and cardiac enzymes remain unremarkable.
-Continue heparin drip and nitroglycerin drip.
-Continue aspirin/clopidogrel, metoprolol and rosuvastatin.
-Cardiac catheterization today. The patient will be generally high risk for intervention.
#Recovered ICM (EF 50%) s/p ICD
-Chronic, stable.
-Continue current medication regimen.
#HTN:
-Chronic, stable.
-Controlled on current medication regimen.
#HLD:
-Chronic, stable.
-Total cholesterol = 133, LDL = 65, HDL = 54, Triglycerides = 73.
-Continue statin.
-Transitioning to [facility] as an outpatient.
-Goal LDL < 55.
Subjective/Interval History:
No acute events.
Patient currently chest pain free on nitroglycerin 5 mcg/min.
DATA:
Cardiac Catheterization, 02/02/2019:
CONCLUSIONS
1: Focal area of anterolateral hypokinesis with EF 55%-the left ventricular function appears subjectively better than the left ventriculogram done on the 2013 study.
2: Diffuse campo double CAD as described with patent VALDES-LAD and SIMON-RPDA bypass grafts. The radial artery graft to the circumflex marginal remains functionally occluded.
3. Stable campo CAD with the exception of a new 60% LAD lesion distal to the left internal mammary graft touchdown site. This lesion could be stented if clinically appropriate; however, he walked 12 minutes on a treadmill achieving 95% maximum
predicted heart rate with no symptoms and no ischemic ECG changes. There was scintigraphic evidence of anteroapical ischemia. I think a conservative approach is most appropriate at present. He has been advised to notify his care team he begins to
have progressive exertional anginal symptoms and if this occurs we can stent the LAD via the VALDES graft.
TTE, 02/09/2022:
CONCLUSIONS
LV ejection fraction is approximately 50%. Moderate to severe mid
anteroseptal, inferoseptal, apical septal, and apical inferior hypokinesis.
Normal right ventricular size and function. ICD wire seen in right ventricle.
Mitral valve opens normally. Mild mitral regurgitation.
Aortic valve opens normally. Trace aortic regurgitation.
Trace tricuspid regurgitation. Estimated pulmonary artery pressure of 20-25
mmHg.
No significant change since the prior study of 01/31/20.
Physical Exam
Vital Signs/Labs
Vital Signs
Temp Pulse Resp BP Pulse Ox
36.6 C 71 16 121/89 98
10/03/23 07:37 10/03/23 07:37 10/03/23 07:37 10/03/23 04:24 10/03/23 07:37
10/01/23 10/02/23 10/03/23
11:59 11:59 11:59
Actual Weight 81.9 kg 81.6 kg 80.8 kg
10/01/23 03:44
10/01/23 03:44
APTT 105.0 Sec (23.4-35.0) H 10/03/23 04:34
Triglycerides 73 mg/dl (10-149) 10/01/23 03:44
LDL Cholesterol, Calc 65 mg/dl 10/01/23 03:44
VLDL Cholesterol, Calc 14 mg/dl (0-30) 10/01/23 03:44
HDL Cholesterol 54 mg/dl 10/01/23 03:44
LAB Results
09/30/23 10/01/23 10/01/23
22:25 00:23 03:44
Troponin I < 0.012 < 0.012 < 0.012
10/01/23 10/01/23
06:23 09:23
Troponin I Cancelled Cancelled
Physical Exam
Constitutional: No acute distress and Comfortable
EENT: Anicteric and Moist mucous membranes
Cardiovascular: Rhythm & rate is regular, Pedal edema is absent, JVD pressure is normal, S1S2 is normal and Murmur/rub/gallop absent
Respiratory: Respiratory effort normal, Lungs clear to auscul., Wheeze Absent, Crackles Absent and Rhonchi Absent
GI: Soft, Distention absent, Flat, Non tender and Normal bowel sounds
Neuro/Psych: AO x 3
Data Reviewed
-
Date of Service: October 03, 2023
Medical Decision Making: Reviewed Test Results, Independent Historian Assessment and Test Interpretation
EKG: Tracing Personally Visualized and interpreted and Report Reviewed by me
Echo: Report Reviewed by me
X-Ray/CT/US/MRI/NUC/PET: Image Personally Visualized and interpreted and Report Reviewed by me
Medical Tests (PFT, Pathology etc): Image Personally Visualized and interpreted and Report Reviewed by me
Labs: Labs Reviewed by me
Old Records: Reviewed
--- NOTE | 2023-10-03 09:06 | ITS.CL.CATH ---
[facility] - Catheterization
Cardiac Catheterization
Procedure Report:
CARDIAC CATHETERIZATION REPORT
Date of Procedure: 10/03/2023
Referring: Memo Granados M.D.
INDICATION: Known coronary artery disease status post bypass, suspicious chest pain.
PROCEDURE:
1. Left catheterization
2. Coronary angiography.
3. Bypass angiography.
ACCESS:
6 Kazakh right common femoral artery using a modified Seldinger technique with a micropuncture kit under ultrasound guidance.
CATHETERS:
1. 6 [place] JL 4.
2. 6 [place] JR4.
3. 6 [place] RICHARDSON
HEMODYNAMIC DATA
Weight (kg): 80.7
AO (s/d/x, mmHg): 139/77/104
LV (s/x mmHg): 139/10 (A wave to 24)
LEFT VENTRICULOGRAPHY: Not performed.
CORONARY ANGIOGRAPHY
Dominance: Right.
Left Main: Normal size, bifurcating vessel. There is no coronary artery disease.
LAD: Normal size vessel giving rise to several small diagonals. The vessel is diffusely diseased in its proximal and midportion. A patent stent is visible in the proximal vessel with diffuse, 70% in-stent restenosis and a focal, 90% lesion in
the mid stent. The distal vessel supplied by patent VALDES graft.
Ramus: Congenitally absent.
Circumflex: Large size, nondominant vessel giving rise to 2 obtuse marginals before terminating as a left posterolateral branch. There are luminal irregularities in OM1. OM 2 is a small, 1 mm vessel.
RCA: Normal size, dominant vessel. The vessel is fairly diffusely diseased in its mid and distal portions with tandem 80% lesions and a small RPL system. The RPDA is supplied by a patent SIMON graft.
BYPASS GRAFT ANGIOGRAPHY
VALDES to LAD: Normal size graft with end-to-side anastomosis to the distal LAD. There is no evidence of stenosis or graft degeneration. The LAD distal to the anastomosis is relatively small and at least moderately diseased.
SIMON to RPDA: Normal size graft with end-to-side anastomosis to the mid RPDA. There is no evidence of stenosis or graft degeneration.
LRA to OM: Chronically totally occluded at its origin.
INTERVENTION(S)
None.
Closure Device: 6 [place] Angio-Seal.
Radiation (mGy): 397.88
DAP (cm2.Gy): 35.5204
Fluoroscopy time (minutes): 10.7
Sedation time (minutes): 46
CONCLUSIONS
1. Right dominant circulation with patent stent in the proximal LAD with diffuse, 70% ISR culminating in a discrete 90% lesion, moderate disease throughout the remainder of the LAD, luminal irregularities in OM1 and tandem, 80% lesions in the mid
and distal RCA, status post prior bypass (patent VALDES to LAD, patent SIMON to RPDA, occluded left radial artery to OM).
2. On direct comparison to prior films from 2019, the patent stents coronary artery disease appears relatively similar with possible global progression in all vascular beds. The previously described LAD lesion distal to the VALDES anastomosis is no
longer observed, but the entire distal vessel appears mildly narrower. There has been progressive worsening of the RCA, though the distal vessel is supplied by patent SIMON graft, better visualized today.
3. Normal filling pressures (LVEDP = 10 mmHg at 80.7 kg) with severe diastolic dysfunction (A wave to 24 mmHg).
4. Possible esophageal spasm in the context of known GERD. The patient reports that the chest pain leading to today's catheterization felt different than prior coronary chest pain.
RECOMMENDATIONS:
1. Expectant management after cardiac catheterization via right common femoral approach.
2. Limited weight bearing for one week.
3. Given mild global progression without discrete lesion, there is no role for intervention at this time.
4. Maintain isosorbide dinitrate and ranolazine.
5. Maintain aspirin and clopidogrel antiplatelet therapy.
6. The patient is being transition to evolocumab as an outpatient.
7. Increase pantoprazole to 40 mg twice daily.
8. Given his degree of diastolic dysfunction, we will add dapagliflozin 10 mg daily.
Copy to: Memo Granados M.D., Edilberto Crowe M.D.
Miah Gomez DO, FACC, FACP
[2023-10-03] MEDS: NSS 1000 IV (09:12)
--- NOTE | 2023-10-03 09:42 | PTCARENOTE ---
Rec'd Pt post card cath, A,A+O, denies pain, R femoral dsg D+I. VSS.
[2023-10-03] MEDS: FARXIGA 10 MG PO (10:09)
--- NOTE | 2023-10-03 10:43 | CM ---
Addendum entered by Agustina Hahn RN 10/03/23 12:33:
Patient is agreeable to the cost. Coupon placed in the red discharge folder
Original Note:
Pricing on Farxiga 10mg qd is covered under the patient's prescription plan at $35 a month. Patient does qualify for the $0 copay card
--- NOTE | 2023-10-03 12:34 | W.PN.HOSP.TC ---
Today's Communication/Plan
-
Cleared by cardiology for discharge today
Assessment / Plan
Assessment / Plan
#Chest pain concerning for unstable angina
#History of CAD
EKG and cardiac enzymes are unremarkable.
S/p nitro drip
Appreciate cards input, 10/02 cardiac catheterization showed stable coronary artery disease
Cardiology suspects possible esophageal spasms
Cleared by cardiology for discharge on his home aspirin, Plavix, Imdur, Ranexa
Cardiology added Jardiance, and increased his Protonix to twice a day
Follow-up with his PCP in 1 week, cardiology as scheduled, and GI in 3-4 weeks
#ICM (EF 50%) s/p ICD
Stable, monitor
#HTN:
BP controlled on BB
#HLD
Continue statin; [facility] to [facility]
#Glucose Intolerance/Prediabetes
HgA1C 5.9 -patient informed
Recommend whole wheat bread, pastas, limiting sugar intake
#GERD
Continue PPI
Full code
Physical Exam
General: No acute distress
HEENT: Normocephalic, Atraumatic, EOMI, MMM
Respiratory: Clear to Auscultation bilaterally
Cardiac: Normal S1/S2, Regular Rate and Rhythm
GI: Soft, Nontender, Nondistended, Normal Bowel Sounds
Extremities: No Clubbing, Cyanosis, or Edema
Neuro: Nonfocal/Grossly Intact
Psych: Calm, Cooperative
Derm: No Visible lesions
Anticipated Discharge: Today
Subjective/Interval History
-
Date of Service: October 03, 2023
Chest pain resolved. No shortness of breath, no fever, no vomiting.
Objective Data
-
Labs:
Laboratory Results
10/03/23
04:34
APTT 105.0 H
Vital Signs:
Vital Signs
Temp Pulse Resp BP Pulse Ox
98.0 F 67 18 115/72 96
10/03/23 09:28 10/03/23 10:30 10/03/23 09:28 10/03/23 10:30 10/03/23 09:28
I&O
10/02/23 10/03/23 10/04/23
06:59 06:59 06:59
Intake Total 480 / 480 480 / 480 333 / 333
Output Total 250 / 250 400 / 400
Balance 230 / 230 480 / 480 -67 / -67
--- NOTE | 2023-10-03 12:34 | W.DCSUMMARY ---
Discharge Summary
Discharge Data
Date of Admission: 10/01/23
Date of Discharge: 10/03/23
-
Pending Results: No
Hospital Course
Discharge diagnosis:
Stable coronary artery disease
Chest pain
Ischemic cardiomyopathy status post intracardiac defibrillator
Benign essential hypertension
Gastroesophageal reflux disease
Prediabetes
Hyperlipidemia
Consults: Cardiology
Procedures:
10/03/23 Cardiac catheterization:
1. Right dominant circulation with patent stent in the proximal LAD with diffuse, 70% ISR culminating in a discrete 90% lesion, moderate disease throughout the remainder of the LAD, luminal irregularities in OM1 and tandem, 80% lesions in the mid
and distal RCA, status post prior bypass (patent VALDES to LAD, patent SIMON to RPDA, occluded left radial artery to OM).
2. On direct comparison to prior films from 2019, the patent stents coronary artery disease appears relatively similar with possible global progression in all vascular beds. The previously described LAD lesion distal to the VALDES anastomosis is no
longer observed, but the entire distal vessel appears mildly narrower. There has been progressive worsening of the RCA, though the distal vessel is supplied by patent SIMON graft, better visualized today.
3. Normal filling pressures (LVEDP = 10 mmHg at 80.7 kg) with severe diastolic dysfunction (A wave to 24 mmHg).
4. Possible esophageal spasm in the context of known GERD. The patient reports that the chest pain leading to today's catheterization felt different than prior coronary chest pain.
Hospital course:
58-year-old male with a past medical history of hypertension, hyperlipidemia, coronary artery disease, ischemic cardiomyopathy, and gastroesophageal reflux disease was admitted for chest pain. Patient was seen in conjunction with cardiology. He
was treated with nitroglycerin drip and heparin drip. His nitroglycerin drip was discontinued, and his chest pain recurred. He was then resumed on his nitroglycerin drip.
Patient had cardiac catheterization, showing stable coronary artery disease. Cardiology recommends continuing his previous cardiac medications, including aspirin, Plavix, statin, Imdur, Ranexa. They added Farxiga for his diastolic dysfunction. It
is unclear the exact cause of his chest pain. Cardiology wonders if he had esophageal spasms. Cardiology increased his Protonix from 40 mg daily to 40 mg twice a day.
Patient did not have any more recurrence of chest pain. He is medically stable and cleared by cardiology for discharge. He can follow-up with cardiology in the office, his primary care doctor 1 week, GI in the office in 3-4 weeks.
Disposition: Home self-care
Discharge planning: Required 37-minute
Discharge Plan
-
Patient Disposition: Home (Routine Discharge)
Discharge Diagnosis/Procedures: Chest pain status post cardiac catheterization, stable coronary artery disease, prediabetes, gastroesophageal reflux disease
Condition: Good
Diet: Low Fat, Low Cholesterol and Diabetic, Carb Controlled
Activity: As tolerated
Driving Restrictions: As prior to admission
Activity Restrictions/Additional Instructions:
Cardiology feels you may have esophageal spasms as the cause of your chest pain.
They have increased your pantoprazole/Protonix to 40 mg twice a day.
Follow-up with your usual GI doctor, cardiology, and your primary care doctor 1 week.
Stand Alone Forms: DC Instructions- Cath/EP Lab
Referrals:
Poonam Resendiz CRNP [Specified Professional Personl] - 10/26/23 10:00 am (Cardiology followup appointment)
Jessica Peterson MD [Active] - in three to four weeks
Edilberto Crowe MD [Family Provider] - in one week
Prescriptions:
New
dapagliflozin propanediol 10 mg Tablet
10 mg PO DAILY Qty: 30 0RF
Continued
aspirin [Adult Aspirin Regimen] 81 MG tablet,delayed release (DR/EC)
81 mg PO DAILY
metoprolol succinate [Toprol XL] 50 MG tablet extended release 24 hr
50 mg PO DAILY
rosuvastatin 20 MG tablet
20 mg PO QPM
ranolazine 1,000 MG tablet extended release 12 hr
1,000 mg PO BID
clopidogrel [Plavix] 75 mg Tablet
75 mg PO DAILY
nitroglycerin 0.4 mg tablet, sublingual
0.4 mg sublingual [id number] PRN (Reason: chest pain)
isosorbide dinitrate 5 mg Tablet
5 mg PO BID
Changed
pantoprazole 40 MG tablet,delayed release (DR/EC)
40 mg PO BID Qty: 60 0RF
Discharge Orders:
Discharge Patient (As Directed); Ordered 10/03/23
Ordered By: Torsten Jackson
Care Plan Goals
Care Plan Goals:
Problem: Readiness for enhanced knowledge related to diagnosis and treatment plan
Goal: Understand your diagnosis and treatment plan needs, including medications if applicable.
Instructions: Know your diagnosis, underlying causes and treatment plan options, including medications if applicable. Consult with your health care team to learn about your diagnosis and treatment plan, including medications if applicable.
Discharge Date and Time
Discharge Date/Time: 10/03/23 14:25
Print Language: NIGERIAN
--- NOTE | 2023-10-03 12:34 | CM ---
Chart reviewed. Patient is independent of ADLS, lives with his in a [address], 0 OMAR, 0 DME. Plan is for the patient to return home with no needs. CM to follow
== END 2023-10-03 14:25 | disposition home or self-care (01) | DRG 392 ==
LOC: IVU 01:12
PROVIDERS: Internal Medicine Cardiovascular Disease; Student in an Organized Health Care Education/Training Program; ADMITTING PHYSICIAN Internal Medicine; ATTENDING PHYSICIAN Family Medicine; CONSULT PHYSICIAN Internal Medicine; EMERGENCY PHYSICIAN Emergency Medicine; FAMILY PHYSICIAN Family Medicine
PROC: 4A023N7 Measurement of Cardiac Sampling and Pressure, Left Heart, Percutaneous Approach (ICD-10-PCS; 2023-10-03)
PROC: B2111ZZ Fluoroscopy of Multiple Coronary Arteries using Low Osmolar Contrast (ICD-10-PCS; 2023-10-03)
PROC: B2131ZZ Fluoroscopy of Multiple Coronary Artery Bypass Grafts using Low Osmolar Contrast (ICD-10-PCS; 2023-10-03)
DX: K22.4 Dyskinesia of esophagus (principal); I50.22 Chronic systolic (congestive) heart failure; I42.8 Other cardiomyopathies; I25.118 Atherosclerotic heart disease of native coronary artery with other forms of angina pectoris; J45.909 Unspecified asthma, uncomplicated; I11.0 Hypertensive heart disease with heart failure; R73.03 Prediabetes; E78.00 Pure hypercholesterolemia, unspecified; I25.5 Ischemic cardiomyopathy; G47.33 Obstructive sleep apnea (adult) (pediatric); E66.9 Obesity, unspecified; I45.10 Unspecified right bundle-branch block; K21.9 Gastro-esophageal reflux disease without esophagitis; K22.70 Barrett's esophagus without dysplasia; I25.2 Old myocardial infarction; Z95.5 Presence of coronary angioplasty implant and graft; Z87.442 Personal history of urinary calculi; Z87.19 Personal history of other diseases of the digestive system; Z95.1 Presence of aortocoronary bypass graft; Z95.810 Presence of automatic (implantable) cardiac defibrillator; Z79.82 Long term (current) use of aspirin; Z79.02 Long term (current) use of antithrombotics/antiplatelets; Z68.30 Body mass index [BMI] 30.0-30.9, adult; Z91.011 Allergy to milk products; Z91.018 Allergy to other foods
CPT/HCPCS: 71046; 80053; 80061; 83036; 84484; 85025; 85027; 85730; 93005; 93017; 93459; 94760; 96365; 96366; 96367; 99285; C1760; C1894; Q9967

== ENCOUNTER → 2023-10-12 07:00 | Outpatient (REF) | payer OTHER, SELFPAY | LOC: HWRAD 07:00 | PROVIDERS: ATTENDING PHYSICIAN Family Medicine | DX: N50.89 Other specified disorders of the male genital organs (principal) | CPT/HCPCS: 76870; 93976 ==

== ENCOUNTER 2023-10-25 13:57 | Emergency (ER) | payer OTHER, SELFPAY ==
[2023-10-25 15:06] VITALS: BP 140/100
[2023-10-25 15:10] LABS: % Basophils 0.9 % (0-2); % Eosinophils 1.8 % (0-6); % Immature Granulocytes 0.4 % (0-0.5); % Lymphocytes 30.4 % (20.5-51.1); % Monocytes 12.5 % (1.7-9.3); Absolute Eosinophils 0.1 10^3/uL (0-0.7); Absolute Lymphocytes 1.4 10^3/uL (1.2-3.4); Absolute Monocytes 0.6 10^3/uL (0.1-0.6); Absolute Neutrophils 2.5 10^3/uL (1.4-6.5); Hematocrit 38.2 % (39.0-52.0); Hemoglobin 13.4 g/dL (13.0-18.0); Mean Corp Hgb Conc. 35.1 g/dL (33.0-37.0); Mean Corpuscular Hgb 32.1 pg (27.0-31.0); Mean Corpuscular Volume 91.6 fL (80.0-94.0); Nucleated Red Blood Cells % 0 % (-); Platelet Count 153 10^3/uL (130-400); Red Blood Cell Count 4.17 10^6/uL (4.70-6.10); Red Cell Dist. Width 12.1 % (11.5-14.5); White Blood Cell Count 4.6 10^3/uL (4.8-10.8)
[2023-10-25 15:31] LABS: Blood Urea Nitrogen 21 mg/dl (9-20); Carbon Dioxide 29 mmol/L (22-30); eGFR > 60.00
[2023-10-25 15:52] LABS: Calcium 9.3 mg/dl (8.4-10.2); Chloride 100 mmol/L (98-107); Glucose 113 mg/dl (70-99); Sodium 137 mmol/L (135-145)
[2023-10-25 16:00] VITALS: BP 128/89
--- NOTE | 2023-10-25 16:37 | ED.GENMED ---
History of Present Illness
General
Chief Complaint: Headache
Source: patient
Exam Limitations: none
Time Seen by Provider: 10/25/23 14:32
Nursing documentation reviewed up to this point in time: agreed with
History of Present Illness
History of Present Illness:
58-year-old male with past medical history of asthma, heart disease , presenting to the emergency department today with concerns of a question discomfort to the right side of his face and right eye started roughly 30 minutes ago while he was in his
car eating lunch was very severe and abrupt in onset within a few seconds. Denies any neurologic symptoms associated no chest pain or shortness of breath associated. Symptoms are now fully resolved prior to my assessment within a half an hour of
on onset of symptoms.
Past History
Past History
ED Past Medical History: CAD, GERD (barretts), HTN, Hypercholesterolemia, PR (2000), Other (cardiomyopathy) and Other (Diverticulitis, volvulus, Kidney stones)
ED Past Surgical History: Cardiac (CABG with 3 vessel bypass, 2008, AICD), Orthopedic and Other (Gastropexy November 2011 for repair of gastric volvulus. Anterior gastropexy and gastrostomy September 2012)
Social History
Tobacco: Non-smoker
Alcohol: None
Drug: None
Personal:
Living: with family
Employment: Employed
Family History
Family History: CAD
Review of Systems
Review of Systems
Allergies reviewed?: Yes
All Other Systems: ROS reviewed and negative except as documented in HPI and ROS
Phy Exam
Physical Exam
Physical Exam:
GENERAL: Alert , in no apparent distress
EYE: pupils equal and reactive
NECK: Supple, no significant adenopathy.
ENT: o/p clr, mmm.
CARDIAC: Regular rate and rhythm .
LUNGS: Clear breath sounds bilaterally, no acute respiratory distress, no wheezes/rales/rhonchi
ABDOMEN: Soft, without focal tenderness, no r/g, no cvat
NEUROLOGICAL: Alert and oriented, no focal neuro deficits, 5 out of 5 upper and lower extremity strength normal sensation with palpating bilaterally normal finger-nose and [id number] no pronator drift
SKIN: Warm and dry, skin intact.
MUSCULOSKELETAL: No edema, well perfused.
PSYCH: Normal and appropriate interaction.
Course
Orders/Labs/Results
Orders:
Orders
10/25/23 14:[address] [CT Head W/o Iv Contrast] Urgent
Comment:
Reason For Exam: crushing pain right jainism
10/25/23 14:57
CT Head & Neck Angio W/wo IV Urgent
Comment:
Reason For Exam: right sided worst JOHNSON of life abrupt
10/25/23 15:01
BMP [Basic Metabolic Panel] Urgent
CBC/With Diff [Complete Blood Count/With Diff] Urgent
Abnormal Lab Results
10/25/23
15:01
WBC 4.6 L 10^3/uL
(4.8-10.8)
RBC 4.17 L 10^6/uL
(4.70-6.10)
Hct 38.2 L %
(39.0-52.0)
MCH 32.1 H pg
(27.0-31.0)
Monocytes % 12.5 H %
(1.7-9.3)
BUN 21 H mg/dl
(9-20)
Glucose 113 H mg/dl
(70-99)
10/25/23 15:01
10/25/23 15:01
Vital Signs
Initial and Last Documented VS:
Initial Vital Signs
Temp Pulse Resp Pulse Ox
98.2 F 68 15 100
10/25/23 14:00 10/25/23 14:00 10/25/23 14:00 10/25/23 14:00
Last Documented Vital Signs
Temp Pulse Resp BP Pulse Ox
98.2 F 60 15 128/89 97
10/25/23 14:00 10/25/23 16:30 10/25/23 16:30 10/25/23 16:00 10/25/23 16:30
MDM/Problems Addressed
MDM/Problems Addressed:
58-year-old male presenting to the emergency department today with concerns of a crushing pain to the right side of his face started while eating 30 minutes prior to arrival has since resolved vital signs normal upon arrival patient no distress
normal neurologic evaluation labs obtained unremarkable. Here patient very well-appearing no acute symptoms normal neurologic evaluation head CT negative head CT angiogram negative as well asymptomatic for multiple hours in the ER normal vital
signs stable for discharge no apparent life-threatening etiology. No abnormalities to the eye making angle-closure glaucoma unlikely was a very abrupt in onset making temporal arteritis unlikely. Otherwise stable for discharge return precautions
given.
*Critical Care Note
Total Time (30-74mins, 75-104mins- exclusive of procedures): Not Applicable
ED Attending Note
-
Portions of this chart may have been created with voice recognition software.� Occasional wrong word or��sound alike� substitutions may have occurred due to the inherent limitations of voice recognition software.
Discharge Plan
Departure
Patient Disposition: Home (Routine Discharge)
Date of Disposition: 10/25/23
Time of Disposition: 18:08
Patient with high blood pressure during this ER visit?: No
Condition: Good
Covid-19: Not Applicable
Discharge Problem:
Headache
Instructions: Headache, Adult (DC)
Prescriptions:
No Action
aspirin [Adult Aspirin Regimen] 81 MG tablet,delayed release (DR/EC)
81 mg PO DAILY
metoprolol succinate [Toprol XL] 50 MG tablet extended release 24 hr
50 mg PO DAILY
rosuvastatin 20 MG tablet
20 mg PO QPM
ranolazine 1,000 MG tablet extended release 12 hr
1,000 mg PO BID
clopidogrel [Plavix] 75 mg Tablet
75 mg PO DAILY
nitroglycerin 0.4 mg tablet, sublingual
0.4 mg sublingual [id number] PRN (Reason: chest pain)
isosorbide dinitrate 5 mg Tablet
5 mg PO BID
dapagliflozin propanediol 10 mg Tablet
10 mg PO DAILY Qty: 30 0RF
pantoprazole 40 MG tablet,delayed release (DR/EC)
40 mg PO BID Qty: 60 0RF
Referrals:
Edilberto Crowe MD [Family Provider] -
Activity Restrictions/Additional Instructions:
You came to the emergency department today with concerns of headache. Here you had a reassuring assessment normal CT scan and CT angiogram. Please follow-up closely as an outpatient. Return to the emergency department for any worsening, new or
concerning symptoms.
Interventions
Interventions:
*Risk Screen - Suicide Last Done: 10/25/23 14:00
*General Assessment Last Done: 10/25/23 14:00
*Neglect/Abuse Screening Last Done: 10/25/23 14:00
ED- Neurological Assessment Last Done: 10/25/23 15:02
Discharge Date and Time
Print Language: ICELANDIC
== END 2023-10-25 18:26 | disposition home or self-care (01) ==
LOC: EMR 13:57
PROVIDERS: Physician Assistant; EMERGENCY PHYSICIAN Emergency Medicine; FAMILY PHYSICIAN Family Medicine
DX: R51.9 Headache, unspecified (principal); I25.10 Atherosclerotic heart disease of native coronary artery without angina pectoris; J45.909 Unspecified asthma, uncomplicated; E78.00 Pure hypercholesterolemia, unspecified; I10 Essential (primary) hypertension; I42.9 Cardiomyopathy, unspecified; K57.92 Diverticulitis of intestine, part unspecified, without perforation or abscess without bleeding; K22.70 Barrett's esophagus without dysplasia; I45.10 Unspecified right bundle-branch block; G47.30 Sleep apnea, unspecified; K21.9 Gastro-esophageal reflux disease without esophagitis; M19.90 Unspecified osteoarthritis, unspecified site; I25.2 Old myocardial infarction; Z87.442 Personal history of urinary calculi; Z95.1 Presence of aortocoronary bypass graft; Z95.810 Presence of automatic (implantable) cardiac defibrillator; Z95.5 Presence of coronary angioplasty implant and graft; Z79.82 Long term (current) use of aspirin; Z79.02 Long term (current) use of antithrombotics/antiplatelets; Z91.011 Allergy to milk products; Z91.018 Allergy to other foods; Z91.048 Other nonmedicinal substance allergy status
CPT/HCPCS: 99285; 70450; 70496; 70498; 80048; 85025; Q9967

== ENCOUNTER → 2023-11-15 15:29 | Outpatient (REF) | payer OTHER, SELFPAY | LOC: RAD 15:29 | PROVIDERS: ATTENDING PHYSICIAN Surgery; FAMILY PHYSICIAN Family Medicine | DX: N50.9 Disorder of male genital organs, unspecified (principal) | CPT/HCPCS: 76870; 93976 ==

== ENCOUNTER → 2023-12-27 06:26 | Day surgery (SDC) | payer OTHER, SELFPAY | LOC: GI 06:26 | PROVIDERS: ATTENDING PHYSICIAN Internal Medicine Gastroenterology | DX: K22.89 Other specified disease of esophagus (principal); K44.9 Diaphragmatic hernia without obstruction or gangrene; K31.89 Other diseases of stomach and duodenum; K31.7 Polyp of stomach and duodenum; R07.89 Other chest pain; Z87.19 Personal history of other diseases of the digestive system | CPT/HCPCS: 43239; 88305 ==

== ENCOUNTER → 2024-01-12 14:17 | Outpatient (REF) | payer OTHER, SELFPAY | LOC: CLAB 14:17 | PROVIDERS: ATTENDING PHYSICIAN Surgery | DX: N50.9 Disorder of male genital organs, unspecified (principal) | CPT/HCPCS: 88305 ==